=== PATIENT | male | born 1955 ===

== ENCOUNTER 2021-09-30 08:54 | Day surgery (SDC) | payer OTHER ==
[~2021-09-30 08:54] MED LIST: CARBIDOPA-LEVO1 EAC4 PO; IRBESARTAN; PROCARDIA
[2021-09-30] MEDS ORDERED: ULTRAM50 MG PO (10:09)
[2021-09-30] MEDS ORDERED: MIRALAX17 GM PO (10:09)
[2021-09-30] MEDS ORDERED: TYLENOL ARTHRI650 MG PO (10:09)
== END 2021-09-30 15:15 | disposition home or self-care (01) ==
LOC: CIR.AMB 08:54
PROVIDERS: ATTEND Surgery
DX: K40.20 Bilateral inguinal hernia, without obstruction or gangrene, not specified as recurrent (principal); K42.9 Umbilical hernia without obstruction or gangrene; I10 Essential (primary) hypertension